=== PATIENT | male | born 1975 | race Two or more races ===

== ENCOUNTER 2023-06-24 09:38 | Outpatient (AMB) | payer MEDICAID, SELFPAY ==
[2023-06-24 09:45] VITALS: BP 130/68; PULSE 107; O2SAT 98; BMI 59.7
--- NOTE | 2023-06-24 09:45 | A.OFFVIS_ITS ---
Intake Vital Signs 06/24/23 09:45 Height 6 ft Weight 440 lb BMI 59.7 BP 130/68 Blood Pressure Location Lt brachial Position Sitting Pulse 107 H Pulse Source Pulse Oximeter Pulse Oximetry (%) 98 Oxygen Delivery Method Room Air Intake Visit Reasons: [id number] - Confirmed Allergies No Known Allergies Allergy (Verified 06/24/23 09:49) HPI HPI Comments History of Present Illness Details 47 y/o male patient presents with HTN an d T2DM presents for new in- person visit for sleep consultation. Pt reports snoring, witnessed apnea spells, and non refreshing sleep. He feels chocking and wakes up gasping when he sleep. He has daytime sleepiness and used to take a short nap at work. He can fall asleep while he drives. He gained 160 lb over the last three years. Sleep questionnaire: Have you ever been diagnosed with a sleep disorder? No. Have you ever had a sleep study in the past? No. Have you ever been treated for a sleep disorder? No. Do you take medications for a sleep disorder? No. Do you snore? Yes. Do you wake up gasping at night? Yes. Do you have episodes of apneas? Yes. If yes, are they witnessed? Yes. Do you have episodes of nocturnal chest pain or dyspnea? Yes. Do you have difficulty initiating sleep? Yes. Do you have difficulty maintaining sleep? Yes. Do you wake up tired? Yes. Do you have headaches upon awakening? Yes. Do you wake up with dry mouth or throat? Yes. Do you have GERD? Yes. Do you have nocturia? Yes, a lot. Do you have nocturnal leg cramps? Yes. Do you have symptoms of restless legs? Yes. Do you act out your dreams? Yes. Sleep hygiene questionnaire: What is your usual sleep routine? Usual bedtime is at 8-9 pm; Usual wake up time is at 4:30 am. Do you take naps? Yes, sometimes. Is your sleep environment cool, dark, and quiet? Yes. Do you exercise? Walking. Do you take caffeine or other stimulants? Not really. Do you use electronics in bed? Yes. What is your work schedule? N/A Hypersomnolence questionnaire: Do you have daytime tiredness or fatigue? Yes. Do you easily fall asleep when inactive? Yes. Have you ever had episodes of sudden weakness? No. Have you ever had episodes of sudden weakness associated with strong emotions? No. PFSH Medical History (Updated 06/24/23 @ 10:29 by Donte Sanders CNP) Knee effusion Family History (Updated 06/24/23 @ 09:52 by Glenda Soliman) Father Stroke Mother Cancer Social History (Updated 06/24/23 @ 09:52 by Glenda Soliman) Household Members: Family Alcohol intake: never Patient Tobacco Use Status: Former Tobacco user Review of Systems Const All systems reviewed & are unremarkable except as noted in HPI and below Physical Exam Vital Signs: Last Vital Signs Pulse 107 H 06/24/23 09:45 BP 130/68 06/24/23 09:45 Pulse Ox 98 06/24/23 09:45 Oxygen Delivery Method Room Air 06/24/23 09:45 BMI result Body Mass Index 59.7 Const General: cooperative Nutritional Appearance: obese Orientation/consciousness: patient oriented x3 Neck Neck: Yes full ROM and Yes supple Resp Effort & Inspection: normal respiratory effort and able to speak in complete sentences Neuro General: patient oriented x3, gait normal and moves all extremities Cranial nerves: Yes CN's II-XII intact bilaterally Cognition (Neuro): normal cognition Gait exam (Neuro): Normal gait present Motor exam (neuro): 5/5 motor strength present throughout, Pronator motor function not present and no tremor noted Psych Appearance: grossly normal Mental Status: mental status grossly normal Speech and movement: Normal speech and movement present Affect: normal affect Attitude: cooperative Assessment & Plan Assessment & Plan (1) Morbid obesity with BMI of 50.0-59.9, adult: Code(s): E66.01 - Morbid (severe) obesity due to excess calories; Z68.43 - Body mass index [BMI] 50.0-59.9, adult (2) Daytime sleepiness: Code(s): R40.0 - Somnolence (3) Witnessed episode of apnea: Code(s): R06.81 - Apnea, not elsewhere classified (4) Snoring: Code(s): R06.83 - Snoring Plan Pt is advised to undergo in lab sleep study to assess for sleep apnea. Will f/u with pt after study to discuss results and appropriate treatment options. Sleep hygiene education provide, limit electronic use before bedtime. Pt to call with any worsening concerns or questions. Orders: Orders RT PSG in-lab sleep study Today E66.01 - Morbid (severe) obesity due to excess calories, R06.81 - Apnea, not elsewhere classified, R06.83 - Snoring, R40.0 - Somnolence, Z68.43 - Body mass index [BMI] 50.0-59.9, adult Coding Level of Care Code New Pt Level 3 (34063) Diagnoses Morbid obesity with BMI of 50.0-59.9, adult E66.01; Z68.43 Daytime sleepiness R40.0 Witnessed episode of apnea R06.81 Snoring R06.83
== END 2023-06-24 10:35 | disposition home or self-care (01) ==
PROVIDERS: PCP Nurse Practitioner Family; Visit Provider Nurse Practitioner Family
DX: E66.01 Morbid (severe) obesity due to excess calories (principal); Z68.43 Body mass index [BMI] 50.0-59.9, adult; R40.0 Somnolence; R06.81 Apnea, not elsewhere classified; R06.83 Snoring
CPT/HCPCS: 99203

== ENCOUNTER → 2023-06-24 09:38 | Outpatient (BNVA) | payer MEDICAID, SELFPAY | PROVIDERS: PCP Nurse Practitioner Family; Visit Provider Nurse Practitioner Family | DX: R40.0 Somnolence (principal); R06.81 Apnea, not elsewhere classified; R06.83 Snoring; E66.01 Morbid (severe) obesity due to excess calories; Z68.43 Body mass index [BMI] 50.0-59.9, adult | CPT/HCPCS: 99212 ==

== ENCOUNTER → 2023-07-15 20:30 | Outpatient (REF) | payer MEDICAID, SELFPAY | LOC: HO.SL 20:30 | PROVIDERS: PCP Nurse Practitioner Family; Visit Provider Nurse Practitioner Family | DX: Z13.89 Encounter for screening for other disorder (principal) ==